=== PATIENT | female | born 1985 | race Caucasian/White ===

== ENCOUNTER 2020-02-24 12:19 | Emergency (ER) | payer OTHER ==
--- NOTE | 2020-02-24 14:11 | RADIOLOGY REPORT (SQ) ---
EXAM DESCRIPTION: CHEST SINGLE VIEW IMAGES COMPLETED DATE/TIME: 02/24/2020 2:00 pm REASON FOR STUDY: covid +, sob COMPARISON: None. EXAM PARAMETERS: NUMBER OF VIEWS: One view. TECHNIQUE: Single frontal radiographic view of the chest acquired. RADIATION DOSE: NA LIMITATIONS: None. FINDINGS: LUNGS AND PLEURA: No opacities, masses or pneumothorax. No pleural effusion. MEDIASTINUM AND HILAR STRUCTURES: No masses. Contour normal. HEART AND VASCULAR STRUCTURES: Heart normal in size. Normal vasculature. BONES: No acute findings. HARDWARE: None in the chest. OTHER: No other significant finding. IMPRESSION: NO ACUTE RADIOGRAPHIC FINDING IN THE CHEST. TECHNICAL DOCUMENTATION: JOB ID: [id number] [employer]- All Rights Reserved Reading location - IP/workstation name: [email or web address]
--- NOTE | 2020-02-24 14:25 | ER Document Report ---
ED Respiratory Problem - General Chief Complaint: Shortness Of Breath Stated Complaint: SHORT OF BREATH,FEVER,HEADACHE Time Seen by Provider: 02/24/20 13:45 Primary Care Provider: [facility] [Provider Group] - Follow up as needed Mode of Arrival: Ambulatory Information source: Patient Notes: Patient is a 34-year-old female comes emergency room complaining of shortness of breath. Patient states that she was diagnosed with coronavirus this past Friday. She was exposed by a coworker. Patient works as an licensed mortgage loan officer. She denies any past medical history with exception of high anxiety and postsurgical history of cholecystectomy. Patient reiterates that she has a very high anxiety problem. She currently takes no medications for this. She states that ever since being diagnosed she has had multiple panic attacks. She states she is try to hold out but ended up having to come to the ER because her shortness of breath is getting worse. Patient states has been running low-grade fevers are her T-max was 100 and most the time she is running about 99.5. She does take Tylenol and Motrin for this fever presentation. Patient is seen by the [facility]. She is just moved to the local area does not currently have a provider. Patient has a [employer] implantation. She does state that she knows her shortness of breath is probably caused by anxiety level but she is not certain of it and wants to be checked out. TRAVEL OUTSIDE OF THE [place] IN LAST 30 DAYS: No - HPI Patient complains to provider of: Short of breath Onset: Last week Duration: Continuous Initiating Event: Other - Covid positive Quality of pain: No pain Severity: Moderate Pain Level: 3 Context: denies: Smoker Cough: Nonproductive Sputum amount: None Associated symptoms: Anxiety, Short of breath Worsened by: Anxiety Similar symptoms previously: Yes Recently seen / treated by doctor: No Past Medical History - General Information source: Patient - Social History Smoking Status: Never Smoker Chew tobacco use (# tins/day): No Frequency of alcohol use: None Drug Abuse: None Lives with: Family Family History: Reviewed & Not Pertinent Patient has suicidal ideation: No Patient has homicidal ideation: No Past Surgical History: Reports: Hx Cholecystectomy Review of Systems - Review of Systems Constitutional: No symptoms reported EENT: No symptoms reported Cardiovascular: No symptoms reported Respiratory: See HPI, Short of breath Gastrointestinal: No symptoms reported Genitourinary: No symptoms reported Female Genitourinary: No symptoms reported Musculoskeletal: No symptoms reported Skin: No symptoms reported Hematologic/Lymphatic: No symptoms reported Neurological/Psychological: See HPI, Anxiety -: Yes All other systems reviewed and negative Physical Exam - Vital signs Vitals: Temp Pulse Resp BP Pulse Ox 98.3 F 85 16 120/80 99 02/24/20 12:24 02/24/20 12:24 02/24/20 12:24 02/24/20 12:24 02/24/20 12:24 Interpretation: Normal - Notes Notes: PHYSICAL EXAMINATION: GENERAL: Well-appearing, well-nourished and in no acute distress. Very anxious and teary on examination HEAD: Atraumatic, normocephalic. EYES: Pupils equal round and reactive to light, extraocular movements intact, conjunctiva are normal. ENT: Nares patent, oropharynx clear without exudates. Moist mucous membranes. LUNGS: Breath sounds clear to auscultation bilaterally and equal. No wheezes rales or rhonchi. HEART: Regular rate and rhythm without murmurs Female : deferred NEUROLOGICAL:. Normal speech, normal gait. Normal sensory, motor exams PSYCH: Patient appears very anxious and teary on examination because of her exposure to coronavirus. SKIN: Warm, Dry, normal turgor, no rashes or lesions noted. Course - Re-evaluation Re-evalutation: 02/24/20 14:25 Given patient has tested positive for coronavirus on this past Friday and that her chest x-ray was normal vital signs are normal there is no further intervention needed. I however have discussed at length with patient that the anxiety that she displays needs to be further worked up by an outpatient provider. I explained to her that [facility] because we do not start people on and they presents or anxiety medications mostly at a ER because every provider has their own formula and to start on something here and then change it relatively soon would not be appropriate. I will place her on some hydroxyzine 25 mg 3 times daily for anxiety I have told her that this can make her sleepy. She is not suicidal or homicidal. Patient is just very teary and concerned that she has the coronavirus. - Vital Signs Vital signs: Temp Pulse Resp BP Pulse Ox 98.4 F 78 16 112/68 100 02/24/20 14:49 02/24/20 14:49 02/24/20 14:49 02/24/20 14:49 02/24/20 14:49 - Laboratory Results Critical Laboratory Results Reviewed: No Critical Results - No critical labs - Radiology Results Critical Radiology Results Reviewed: No Critical Results - No critical labs Discharge - Discharge Clinical Impression: COVID-19, Anxiety Condition: Stable Disposition: HOME, SELF-CARE Instructions: Anxiety ([facility]) Additional Instructions: As we discussed your shortness of breath is most likely caused by your anxiety/panic attack type presentation. Your lungs are clear on chest x-ray. Your lungs are clear on auscultation. Your vital signs are all normal. At this time you are very young person with no comorbidities or other medical problems. At this time you should self isolate monitor your status I am prescribing you some hydroxyzine this is an antihistamine that can make you sleepy but will help relax you some. It is important as we discussed in your room that you contacted [facility] for [facility] within the next couple of days. Monitor your vital signs should you have any concerns or problems if you have fever spikes or the shortness of breath worsens return to ER for reevaluation. Prescriptions: Hydroxyzine Pamoate 25 mg PO TID PRN #21 capsule PRN Reason: Referrals: [facility] [Provider Group] - Follow up as needed
[2020-02-24 14:50] VITALS: BP 112/68
== END 2020-02-24 14:50 | disposition home or self-care (01) ==
LOC: ER 12:19
DX: U07.1 COVID-19 (principal); F41.9 Anxiety disorder, unspecified; R06.02 Shortness of breath; Z97.5 Presence of (intrauterine) contraceptive device
CPT/HCPCS: 71045; 99283